=== PATIENT | female | born 1995 | race Caucasian/White ===

== ENCOUNTER 2023-07-07 23:33 | Emergency (ER) | payer SELFPAY ==
[~2023-07-07] VITALS: Ht 162.6 cm; Wt 5.4 kg
[2023-07-08 00:09] VITALS: BP 107/57; PULSE 113; RESP 20; TEMP 98.1; O2SAT 98
[2023-07-08] MEDS ORDERED: LORazepam 1 MG TAB PO ONE (01:55)
[2023-07-08 02:25] LABS: AMPHETAMINE, URINE NEGATIVE ng/ml (NEG <=1000); BARBITURATE, URINE NEGATIVE ng/ml (NEG <=200); BENZODIAZEPINE, URINE NEGATIVE ng/mL (NEG <=200); CANNABINOID, URINE POSITIVE ng/mL (NEG <=50); COCAINE, URINE NEGATIVE ng/mL (NEG <=300); OPIATE, URINE NEGATIVE ng/mL (NEG <=2000); PHENCYCLIDINE SCREEN,URINE NEGATIVE ng/mL (NEG <=25)
[2023-07-08 03:09] VITALS: BP 107/57; PULSE 113; RESP 20; TEMP 98.1; O2SAT 98
== END 2023-07-08 03:09 | disposition home or self-care (01) ==
LOC: MED 23:33
DX: F12.929 Cannabis use, unspecified with intoxication, unspecified (principal); Z79.899 Other long term (current) drug therapy
CPT/HCPCS: 80305; 81025; 99283